=== PATIENT | female | born 1995 | race Caucasian/White ===

== ENCOUNTER 2018-02-11 13:41 | Emergency (ER) | payer MEDICAID ==
[~2018-02-11] VITALS: Ht 170.2 cm; Wt 82.0 kg
[2018-02-11 14:28] LABS: BASOPHILS % 0.3 % (0.0-2.0); EOSINOPHILS % 0.6 % (0.0-5.0); HEMATOCRIT. 38.5 % (36.0-48.0); HEMOGLOBIN. 13.5 g/dL (12.0-16.0); LYMPHOCYTES % 21.2 % (20.0-50.0); MEAN CORPUSCULAR HEMOGLOBIN 30.8 pg (28.0-32.0); MEAN CORPUSCULAR VOLUME 87.5 fL (81.0-99.0); MONOCYTES % 7.4 % (2.0-8.0); NEUTROPHILS % 70.5 % (40.0-76.0); PLATELET 223 x1000/uL (130-400); RED BLOOD CELL COUNT 4.39 mill/uL (4.2-5.4); RED CELL DISTRIBUTION WIDTH 13.2 % (11.6-14.6)
[2018-02-11 14:33] LABS: CHLORIDE 106 mEq/L (98-107)
[2018-02-11 14:35] LABS: PROTHROMBIN TIME 10.7 sec (9.4-11.6)
[2018-02-11 15:56] VITALS: BP 121/67
== END 2018-02-11 19:07 | disposition home or self-care (01) ==
LOC: ER 13:41
DX: L27.0 Generalized skin eruption due to drugs and medicaments taken internally (principal); T37.95XA Adverse effect of unspecified systemic anti-infective and antiparasitic, initial encounter; Y92.018 Other place in single-family (private) house as the place of occurrence of the external cause
CPT/HCPCS: 36415; 80053; 83690; 85025; 85610; 99284